=== PATIENT | female | born 1970 | race Caucasian/White ===

== ENCOUNTER 2021-08-07 09:26 | Outpatient (RCR) | payer MEDICARE ==
[2021-08-07 12:58] LABS: BASOPHILS % 0.3 % (0.0-1.0); EOSINOPHILS % 0.6 % (0.0-6.0); HEMATOCRIT 34.3 % (34.2-44.1); HEMOGLOBIN 10.8 g/dL (12.0-16.0); LYMPHOCYTES # (AUTO) 2.6 (1.0-3.2); LYMPHOCYTES % 36.2 % (18.0-39.1); MEAN CORPUSCULAR HEMOGLOBIN 35.9 pg (28-32); MEAN CORPUSCULAR HGB CONC 31.5 g/dL (31-35); MONOCYTES # (AUTO) 0.5 (0.2-0.8); MONOCYTES % 6.6 % (4.4-11.3); NEUTROPHILS % 56.2 % (38.7-80.0); PLATELET COUNT 338 x10e3/uL (140-360); RED BLOOD COUNT 3.01 x10e6/uL (3.6-5.1); RED CELL DISTRIBUTION WIDTH 14.6 % (11.7-14.4)
[2021-08-07 13:18] LABS: ALBUMIN 3.6 g/dL (3.5-5.0); ALBUMIN/GLOBULIN RATIO 0.9 (0.8-2.0); ANION GAP 8.5 mmol/L (8-16); CALCIUM 9.4 mg/dL (8.4-10.2); CREATININE, SERUM 0.73 mg/dL (0.57-1.11); POTASSIUM 3.5 mmol/L (3.5-5.1)
[2021-08-07] MEDS ORDERED: LIDOCAINE/PRILOCAINE 2.5-2.5% KIT ONE (15:56)
[2021-08-07] MEDS ORDERED: LIDOCAINE VISC 2% SOLN 15 ML UDC ONE (15:56)
== END 2021-08-24 ==
LOC: WCC 09:26
PROVIDERS: ATTEND Internal Medicine Infectious Disease
DX: I87.312 Chronic venous hypertension (idiopathic) with ulcer of left lower extremity (principal); L97.821 Non-pressure chronic ulcer of other part of left lower leg limited to breakdown of skin; I82.812 Embolism and thrombosis of superficial veins of left lower extremity; I87.2 Venous insufficiency (chronic) (peripheral); R60.0 Localized edema; Z72.0 Tobacco use
CPT/HCPCS: 36415; 80053; 84134; 85025; 85651; 86141